=== PATIENT | female | born 1980 | race Caucasian/White ===

== ENCOUNTER 2018-09-30 16:26 | Emergency (ER) | payer OTHER ==
[~2018-09-30] VITALS: Ht 172.7 cm; Wt 88.5 kg
== END 2018-09-30 19:57 | disposition home or self-care (01) ==
LOC: ER 16:26
DX: O34.11 Maternal care for benign tumor of corpus uteri, first trimester (principal); O20.8 Other hemorrhage in early pregnancy; Z34.01 Encounter for supervision of normal first pregnancy, first trimester